=== PATIENT | female | born 1965 | race African-American/Black ===

== ENCOUNTER 2017-11-01 17:46 | Emergency (ER) | payer MEDICAID ==
[~2017-11-01] VITALS: Ht 157.5 cm; Wt 78.0 kg
[~2017-11-01 17:46] MED LIST: CARI250T PO; DIPH25CA39 PO; HYDR-4683 GT; PRED10PA PO; RANI150C3 PO
[2017-11-01 18:00] VITALS: BP 133/89
[2017-11-01] MEDS ORDERED: DEXAMETHASONE SOD PHOS 10MG/1ML VIAL INJ IM ONE (22:00)
[2017-11-01] MEDS ORDERED: KETOROLAC TROMETH 60MG/2ML VIAL IM ONE (22:00)
[2017-11-04] MEDS ORDERED: fentaNYL CITRATE 100 MCG/2 ML VL ONE (08:18)
[2017-11-04] MEDS ORDERED: LIDOCAINE VISCOUS 2% 15ML UD ONE (08:18)
[2017-11-04] MEDS ORDERED: MIDAZOLAM HCL 5 MG/ML-1ML VIAL ONE (08:19)
[2017-11-04] MEDS ORDERED: SODIUM CHLORIDE LOCK 10 ML ONE (08:19)
== END 2017-11-01 22:26 | disposition home or self-care (01) ==
LOC: ER 17:49
DX: M54.2 Cervicalgia (principal); M62.838 Other muscle spasm; M25.512 Pain in left shoulder; R51 Headache; Z87.440 Personal history of urinary (tract) infections; Z90.49 Acquired absence of other specified parts of digestive tract; W22.8XXA Striking against or struck by other objects, initial encounter; Y93.89 Activity, other specified; Y92.811 Bus as the place of occurrence of the external cause; Y99.8 Other external cause status
CPT/HCPCS: 70450; 73030; 96372; 99284; J1100; J1885